=== PATIENT | male | born 1950 | race Two or more races ===

== ENCOUNTER 2019-07-02 06:35 | Day surgery (SDC) | payer MEDICARE ==
[2019-06-28 15:32] LABS: BASOPHILS # (AUTO) 0.1 X10'3 (0-0.2); CHLORIDE 105 MMOL/L (99-107); EOSINOPHILS # (AUTO) 0.1 X10'3 (0-0.9); EOSINOPHILS % (AUTO) 1.8 % (0-6); LYMPHOCYTES % (AUTO) 44.3 % (21-51); MEAN CORPUSCULAR VOLUME 90.8 FL (78-98); MEAN PLATELET VOLUME 9.1 FL (7.4-10.4); MONOCYTES # (AUTO) 0.4 X10'3 (0-0.9); MONOCYTES % (AUTO) 5.4 % (2-12); NEUTROPHILS # (AUTO) 3.2 X10'3 (1.8-7.7); NEUTROPHILS % (AUTO) 47.5 % (42-75); PRE OP PLATELET COUNT 186 X10'3 (140-440); TOTAL CARBON DIOXIDE 25.8 MMOL/L (24-32)
[2019-06-28 16:12] LABS: ALBUMIN 3.9 G/DL (3.4-5.0); ALBUMIN/GLOBULIN RATIO 1.1 (1.1-1.5); ALKALINE PHOSPHATASE 104 IU/L (46-116); BLOOD UREA NITROGEN 20 MG/DL (7-18); BUN/CREATININE RATIO 18.7 (5.4-32.0); CALCIUM 9.4 MG/DL (8.5-10.1); CREATININE 1.07 MG/DL (0.60-1.10); PRE OP ALT 77 U/L (30-65); PRE OP ANION GAP 10 (8-16); PRE OP AST 41 U/L (10-37); PRE OP BILIRUB, TOTAL 0.4 MG/DL (0.0-1.0); PRE OP SODIUM 141 MMOL/L (135-145); TOTAL PROTEIN 7.3 G/DL (6.4-8.2); eGFR 69 ML/MIN
[2019-06-28 16:14] LABS: PRE OP GLUCOSE 206 MG/DL (70-104)
[2019-06-28 16:50] LABS: PRE OP HEMOGLOBIN 15.5 g/dL (14.0-17.9)
[2019-06-28 16:53] LABS: MEAN CORPUSCULAR HEMOGLOBIN 34.1 PG (27.0-31.0); PRE OP HEMATOCRIT 42.7 % (42.0-52.0)
[2019-06-28 18:34] LABS: PLATELET ESTIMATE NORMAL; SPHEROCYTES 2+
[2019-06-28 18:35] LABS: ANISOCYTOSIS FEW
[2019-07-02] VITALS (10 sets, daily range): BP systolic 114–131; BP diastolic 73–83
[~2019-07-02] VITALS: Ht 175.3 cm; Wt 102.1 kg
[~2019-07-02 06:35] MED LIST: AMLO10TA13 PO; BENA40TA72 PO; DICL-182 PO; HYDR25TA4 PO; METF-950 PO; cefazolin/dext.iso 2gm/100 ML IV ONE; famotidine 20mg tablet PO ONE; ringers solution, lacted 1,000 ML IV SCH
[2019-07-02] MEDS ORDERED: BUPIVAcaine/PF 2.5mg/ml (0.25%) 10ml vial ONE (06:39)
[2019-07-02] MEDS ORDERED: LIDOcaine 1% 30ml preserv. free vial ONE (07:46)
[2019-07-02] MEDS ORDERED: ringers solution, lacted 1,000 ML IV SCH (08:24)
[2019-07-02] MEDS ORDERED: ondansetron/PF 4mg/2ml inj IV PRN (08:25)
[2019-07-02] MEDS ORDERED: proCHLORperazine 10 MG/2 ml inj IV PRN (08:25)
[2019-07-02] MEDS ORDERED: morphine 4 MG/ML inj SYRINge IV PRN ×2 (08:25)
[2019-07-02] MEDS ORDERED: meperidine/PF 25mg/ml syringe IV PRN ×3 (08:25)
[2019-07-02] MEDS ORDERED: cloNIDine hcl/PF 100mcg/ml inj ONE (08:44)
[2019-07-02] MEDS ORDERED: fentaNYL/PF 50MCG/1 ML 2ML syringe ONE (09:27)
[2019-07-02] MEDS ORDERED: MIDAZolam 5mg/5ml vial ONE (09:28)
[2019-07-02] MEDS ORDERED: ROPIVAcaine 0.5% (5mg/ml) 30ml vial ONE (11:02)
[2019-07-02] MEDS ORDERED: dexamethasone sod phosphate 4mg/ml inj. ONE (11:03)
[2019-07-02] MEDS ORDERED: ketorolac trometh. 30mg/ml inj. ONE (11:20)
--- NOTE | 2019-07-02 11:30 | NUR ---
Received from OR via BED, accompanied by Anesthesiologist DR CARCAMO and report given by Anesthesiolgist. PATIENT A&OX4, DENIES PAIN, V/S WNL, NEUROVASCULAR CHECKS INTACT, 20G PIV LUE, SCD ON, DRESSING SPLINT IN SLING TO RIGHT WRIST CDI ELEVATED WITH ICEBAG APPLIED.
--- NOTE | 2019-07-02 12:40 | NUR ---
PATIENT A&OX4, DENIES PAIN, V/S WNL, NEUROVASCULAR CHECKS INTACT, 20G PIV LUE D/C, SCD OFF, DRESSING SPLINT IN SLING TO RIGHT WRIST CDI ELEVATED WITH ICEBAG APPLIED.D/C FROM PACU I HAVE REVIEWED D/C INSTRUCTIONS WITH PATIENT AND FAMILY AND THEY HAVE VERBALIZED UNDERSTANDING. PATIENT D/C HOME WITH ALL BELONGINGS AND FAMILY GAVE TRANSPORT HOME.
== END 2019-07-02 12:40 | disposition home or self-care (01) ==
LOC: PAS 06:35
PROVIDERS: ATTEND Orthopaedic Surgery Hand Surgery
DX: T84.290A Other mechanical complication of internal fixation device of bones of hand and fingers, initial encounter (principal); M96.0 Pseudarthrosis after fusion or arthrodesis; G89.18 Other acute postprocedural pain; M16.0 Bilateral primary osteoarthritis of hip; Z79.899 Other long term (current) drug therapy; Z98.890 Other specified postprocedural states; Z72.89 Other problems related to lifestyle; Y83.8 Other surgical procedures as the cause of abnormal reaction of the patient, or of later complication, without mention of misadventure at the time of the procedure; Y82.8 Other medical devices associated with adverse incidents
CPT/HCPCS: 20680; 26850; 36415; 64413; 80053; 82948; 85025; 93005; C1713; J0735; J1100; J1885; J2001; J2250; J3010; J3490; A4215; A4618; A6446; A7000; J2795; J7120

== ENCOUNTER 2019-07-20 08:28 | Emergency (ER) | payer MEDICARE ==
[~2019-07-20] VITALS: Ht 175.3 cm; Wt 100.0 kg
[~2019-07-20 08:28] MED LIST changes: -cefazolin/dext.iso 2gm/100 ML IV ONE; -famotidine 20mg tablet PO ONE; -ringers solution, lacted 1,000 ML IV SCH
[2019-07-20] MEDS ORDERED: LIDOcaine 1% w/epiNEPHrine 1:200,000 30ml vial IM ONE (09:15)
[2019-07-20] MEDS ORDERED: CEPH500C5 PO (09:36)
[2019-07-20 09:52] VITALS: BP 117/73
--- NOTE | 2019-07-20 09:53 | NUR ---
dressed with triple antibiotic ointment, 2x2 guaze and guaze wrap
== END 2019-07-20 10:01 | disposition home or self-care (01) ==
LOC: ER 08:29
DX: S90.852A Superficial foreign body, left foot, initial encounter (principal); I10 Essential (primary) hypertension; E11.9 Type 2 diabetes mellitus without complications; Z79.899 Other long term (current) drug therapy; W22.8XXA Striking against or struck by other objects, initial encounter; Y93.89 Activity, other specified; Y92.89 Other specified places as the place of occurrence of the external cause; Y99.8 Other external cause status
CPT/HCPCS: 10120; 73630; 99284

== ENCOUNTER 2019-09-03 19:02 | Emergency (ER) | payer MEDICARE ==
[~2019-09-03] VITALS: Ht 175.3 cm; Wt 100.0 kg
[2019-09-03] MEDS ORDERED: oxymetazoline 15 ML nasal spray NS ONE ×2 (19:15→19:20)
[2019-09-03] MEDS ORDERED: tranexamic acid 100mg/ml inj. TP ONE (19:20)
[2019-09-03] MEDS ORDERED: LIDOcaine/epinephrine TOPICAL 5 ML BTL TOP ONE (19:20)
[2019-09-03] MEDS ORDERED: LIDOcaine Viscous 15ml cup MM PRN (19:35)
[2019-09-03] MEDS ORDERED: ondansetron 4mg rapidly disintigrating tab PO ONE (19:35)
[2019-09-03] MEDS ORDERED: normal saline 1000ml 1,000 ML IV ONE (20:20)
[2019-09-03] MEDS ORDERED: BACDS PO (20:57)
[2019-09-03 21:46] VITALS: BP 146/96
== END 2019-09-03 21:47 | disposition home or self-care (01) ==
LOC: ER 19:03
DX: R04.0 Epistaxis (principal); R42 Dizziness and giddiness; I10 Essential (primary) hypertension; E11.9 Type 2 diabetes mellitus without complications; Z79.84 Long term (current) use of oral hypoglycemic drugs; Z79.899 Other long term (current) drug therapy
CPT/HCPCS: 30901; 96360; 99284

== ENCOUNTER 2019-09-04 16:32 | Emergency (ER) | payer MEDICARE ==
[~2019-09-04] VITALS: Ht 175.3 cm; Wt 100.0 kg
[~2019-09-04 16:32] MED LIST changes: +BACDS PO
[2019-09-04 17:58] VITALS: BP 123/61
[2019-09-04] MEDS ORDERED: LORazepam 1 MG tablet PO ONE (18:05)
--- NOTE | 2019-09-04 18:13 | NUR ---
relieving RN for lunch, pt is resting quietly on gurney, rhino rocket in place to left nare, no bleeding at this time
[2019-09-04 18:14] LABS: BASOPHILS # (AUTO) 0.1 X10'3 (0-0.2); BASOPHILS % (AUTO) 0.8 % (0-1); EOSINOPHILS # (AUTO) 0.2 X10'3 (0-0.9); EOSINOPHILS % (AUTO) 2.4 % (0-6); HEMATOCRIT 41.3 % (42.0-52.0); HEMOGLOBIN 14.2 g/dl (14.0-17.9); LYMPHOCYTES # (AUTO) 3.2 X10'3 (1.1-4.8); LYMPHOCYTES % (AUTO) 44.7 % (21-51); MEAN CORPUSCULAR HEMOGLOBIN 32.1 PG (27.0-31.0); MEAN CORPUSCULAR HGB CONC 34.3 g/dL (33.0-36.5); MEAN CORPUSCULAR VOLUME 93.5 FL (78-98); MEAN PLATELET VOLUME 8.7 FL (7.4-10.4); MONOCYTES # (AUTO) 0.5 X10'3 (0-0.9); MONOCYTES % (AUTO) 6.7 % (2-12); NEUTROPHILS # (AUTO) 3.2 X10'3 (1.8-7.7); NEUTROPHILS % (AUTO) 45.4 % (42-75); PLATELET COUNT 175 X10'3 (140-440); RED BLOOD COUNT 4.42 X10'6 (4.70-6.10); RED CELL DISTRIBUTION WIDTH 13.2 % (11.5-14.5); WHITE BLOOD COUNT 7.1 X10'3 (4.5-11.0)
[2019-09-04 18:15] LABS: ANION GAP 12 (8-16); BLOOD UREA NITROGEN 17 MG/DL (7-18); BUN/CREATININE RATIO 18.1 (5.4-32.0); CALCIUM 9.4 MG/DL (8.5-10.1); CHLORIDE 105 MMOL/L (99-107); CREATININE 0.94 MG/DL (0.60-1.10); GLUCOSE 174 MG/DL (70-104); POTASSIUM 3.9 MMOL/L (3.5-5.1); SODIUM 141 MMOL/L (135-145); TOTAL CARBON DIOXIDE 24.4 MMOL/L (24-32); eGFR 80 ML/MIN
== END 2019-09-04 18:44 | disposition home or self-care (01) ==
LOC: ER 16:33
DX: R04.0 Epistaxis (principal); I10 Essential (primary) hypertension; E11.9 Type 2 diabetes mellitus without complications; Z79.84 Long term (current) use of oral hypoglycemic drugs; Z79.899 Other long term (current) drug therapy
CPT/HCPCS: 30901; 36415; 80048; 85025; 93005; 99284

== ENCOUNTER 2019-09-07 14:32 | Emergency (ER) | payer MEDICARE ==
[~2019-09-07] VITALS: Ht 175.3 cm; Wt 104.8 kg
[2019-09-07 15:31] VITALS: BP 110/75
== END 2019-09-07 15:30 | disposition home or self-care (01) ==
LOC: ER 14:32
DX: R04.0 Epistaxis (principal); I10 Essential (primary) hypertension; E11.9 Type 2 diabetes mellitus without complications; Z79.84 Long term (current) use of oral hypoglycemic drugs; Z79.899 Other long term (current) drug therapy
CPT/HCPCS: 99283

== ENCOUNTER 2020-01-31 07:47 | Day surgery (SDC) | payer MEDICARE ==
[2020-01-28 15:53] LABS: BASOPHILS # (AUTO) 0.1 X10'3 (0-0.2); BASOPHILS % (AUTO) 0.8 % (0-1); EOSINOPHILS # (AUTO) 0.1 X10'3 (0-0.9); EOSINOPHILS % (AUTO) 1.9 % (0-6); LYMPHOCYTES # (AUTO) 3.3 X10'3 (1.1-4.8); LYMPHOCYTES % (AUTO) 48.4 % (21-51); MEAN CORPUSCULAR HEMOGLOBIN 30.6 PG (27.0-31.0); MEAN CORPUSCULAR VOLUME 90.1 FL (78-98); MEAN PLATELET VOLUME 8.7 FL (7.4-10.4); MONOCYTES # (AUTO) 0.4 X10'3 (0-0.9); MONOCYTES % (AUTO) 6.6 % (2-12); NEUTROPHILS # (AUTO) 2.9 X10'3 (1.8-7.7); NEUTROPHILS % (AUTO) 42.3 % (42-75); PRE OP HEMATOCRIT 44.4 % (42.0-52.0); PRE OP HEMOGLOBIN 15.1 g/dL (14.0-17.9); PRE OP PLATELET COUNT 184 X10'3 (140-440); RED BLOOD COUNT 4.93 X10'6 (4.70-6.10); RED CELL DISTRIBUTION WIDTH 13.8 % (11.5-14.5)
[2020-01-28 16:07] LABS: ALBUMIN 4.1 G/DL (3.4-5.0); ALBUMIN/GLOBULIN RATIO 1.2 (1.1-1.5); ALKALINE PHOSPHATASE 78 IU/L (46-116); BLOOD UREA NITROGEN 20 MG/DL (7-18); BUN/CREATININE RATIO 18.3 (5.4-32.0); CALCIUM 9.5 MG/DL (8.5-10.1); CHLORIDE 103 MMOL/L (99-107); CREATININE 1.09 MG/DL (0.60-1.10); PRE OP ALT 79 U/L (30-65); PRE OP ANION GAP 11 (8-16); PRE OP AST 41 U/L (10-37); PRE OP BILIRUB, TOTAL 0.7 MG/DL (0.0-1.0); PRE OP GLUCOSE 125 MG/DL (70-104); PRE OP POTASSIUM 3.8 MMOL/L (3.4-5.1); PRE OP SODIUM 137 MMOL/L (135-145); TOTAL CARBON DIOXIDE 23.1 MMOL/L (24-32); TOTAL PROTEIN 7.5 G/DL (6.4-8.2); eGFR 67 ML/MIN
[~2020-01-31] VITALS: Ht 175.3 cm; Wt 104.0 kg
[2020-01-31] VITALS (7 sets, daily range): BP systolic 130–147; BP diastolic 66–86
[~2020-01-31 07:47] MED LIST changes: -BACDS PO; +BUPIVAcaine/PF 2.5mg/ml (0.25%) 10ml vial ONE; +cefazolin/dext.iso 2gm/100ml 100 ML IV ONE; +famotidine 20mg tablet PO ONE; +ringers solution, lacted 1,000 ML IV SCH
[2020-01-31] MEDS ORDERED: LIDOcaine 0.5% (5mg/ml) 50ml vial ONE (11:12)
[2020-01-31] MEDS ORDERED: fentaNYL/PF 50MCG/1 ML 2ML syringe ONE ×2 (11:32→11:39)
[2020-01-31] MEDS ORDERED: midazolam 2 mg/2 ml injection ONE ×2 (11:38→11:39)
[2020-01-31] MEDS ORDERED: LIDOcaine 1%/PF 5ML 10 MG/ML VIAL ONE (12:24)
[2020-01-31] MEDS ORDERED: hydrALAZINE 20mg/ml inj. IV ONE (12:24)
[2020-01-31] MEDS ORDERED: propofol inj 20 ML IV ONE (12:24)
--- NOTE | 2020-01-31 12:35 | NUR ---
Received from OR via BED , accompanied by Anesthesiologist and report given by Anesthesiolgist. PATIENT WAKING UP, DENIES PAIN, V/S WNL, NEUROVASCULAR CHECKLS INTACT, 20G PIV TO LUE, SCD ON, DRESSING SPLINT TO RUE WHICH IS ELEVATED AND ICE APPLIED PER MD. PATIENT INSTRUCTED TO WIGGLE FINGERS OFTEN.
--- NOTE | 2020-01-31 13:25 | NUR ---
PATIENT A&OX4, DENIES PAIN, V/S WNL, NEUROVASCULAR CHECKLS INTACT, 20G PIV TO LUE D/C, SCD OFF, DRESSING /SPLINT TO RUE WHICH IS ELEVATED AND ICE APPLIED PER MD. PATIENT INSTRUCTED TO WIGGLE FINGERS OFTEN. I HAVE REVIEWED D/C INSTRUCTIONS WITH PATIENT AND FAMILY WHO VERBALIZES UNDERSTANDING. PATIENT D/C HOME WITH ALL BELONGINGS, TRANSPORTED TO [facility] VIA WC.
== END 2020-01-31 13:25 | disposition home or self-care (01) ==
LOC: PAS 07:47
PROVIDERS: ATTEND Orthopaedic Surgery Hand Surgery
DX: T84.498A Other mechanical complication of other internal orthopedic devices, implants and grafts, initial encounter (principal); T84.9XXA Unspecified complication of internal orthopedic prosthetic device, implant and graft, initial encounter; M19.041 Primary osteoarthritis, right hand; I10 Essential (primary) hypertension; E11.9 Type 2 diabetes mellitus without complications; M16.0 Bilateral primary osteoarthritis of hip; Z98.890 Other specified postprocedural states; Z72.89 Other problems related to lifestyle; Y83.8 Other surgical procedures as the cause of abnormal reaction of the patient, or of later complication, without mention of misadventure at the time of the procedure; Z79.899 Other long term (current) drug therapy
CPT/HCPCS: 26850; 36415; 80053; 82948; 85025; 93005; C1713; J0360; J2001; J2250; J2704; J3010; J3490; J7120; A4215; A4618; A7000

== ENCOUNTER 2021-12-18 07:38 | Emergency (ER) | payer MEDICARE ==
[~2021-12-18] VITALS: Ht 175.3 cm; Wt 99.8 kg
[~2021-12-18 07:38] MED LIST changes: -BUPIVAcaine/PF 2.5mg/ml (0.25%) 10ml vial ONE; +METF-1203 PO; -METF-950 PO; -cefazolin/dext.iso 2gm/100ml 100 ML IV ONE; -famotidine 20mg tablet PO ONE; -ringers solution, lacted 1,000 ML IV SCH
--- NOTE | 2021-12-18 07:45 | NUR ---
DR BENITEZ AWARE OF PATIENT STATUS.
[2021-12-18] MEDS ORDERED: TETanus/Pertussis (Acell)/Diphther VAC/PF (Tdap-Adult) 0.5ml syringe IMVAC ONE (08:05)
[2021-12-18] MEDS ORDERED: LIDOcaine 1% W/epiNEPHrine 1:200,000 10ml vial IJ ONE (08:05)
[2021-12-18] MEDS ORDERED: LIDOcaine 1% W/epiNEPHrine 1:100,000 20ml vial IJ ONE (08:10)
[2021-12-18 08:21] VITALS: BP 156/107
== END 2021-12-18 10:09 | disposition home or self-care (01) ==
LOC: ER 07:38
DX: S01.01XA Laceration without foreign body of scalp, initial encounter (principal); S09.90XA Unspecified injury of head, initial encounter; I10 Essential (primary) hypertension; E11.9 Type 2 diabetes mellitus without complications; Z72.89 Other problems related to lifestyle; Z86.718 Personal history of other venous thrombosis and embolism; Z79.899 Other long term (current) drug therapy; W01.0XXA Fall on same level from slipping, tripping and stumbling without subsequent striking against object, initial encounter; Y93.89 Activity, other specified; Y92.89 Other specified places as the place of occurrence of the external cause; Y99.8 Other external cause status
CPT/HCPCS: 12001; 90471; 90715; 99284; J3490

== ENCOUNTER 2022-08-22 05:27 | Day surgery (SDC) | payer MEDICARE ==
[2022-08-20 10:39] LABS: BASOPHILS % (AUTO) 0.8 % (0-1); EOSINOPHILS # (AUTO) 0.1 X10'3 (0-0.9); EOSINOPHILS % (AUTO) 1.6 % (0-6); HEMATOCRIT 44.1 % (42.0-52.0); HEMOGLOBIN 14.9 g/dl (14.0-17.9); LYMPHOCYTES # (AUTO) 2.8 X10'3 (1.1-4.8); LYMPHOCYTES % (AUTO) 48.4 % (21-51); MEAN CORPUSCULAR HEMOGLOBIN 30.7 PG (27.0-31.0); MEAN CORPUSCULAR HGB CONC 33.7 g/dL (33.0-36.5); MEAN CORPUSCULAR VOLUME 91.2 FL (78-98); MEAN PLATELET VOLUME 8.5 FL (7.4-10.4); MONOCYTES # (AUTO) 0.5 X10'3 (0-0.9); MONOCYTES % (AUTO) 8.3 % (2-12); NEUTROPHILS # (AUTO) 2.3 X10'3 (1.8-7.7); NEUTROPHILS % (AUTO) 40.9 % (42-75); PLATELET COUNT 188 X10'3 (140-440); RED BLOOD COUNT 4.84 X10'6 (4.70-6.10); RED CELL DISTRIBUTION WIDTH 13.4 % (11.5-14.5); WHITE BLOOD COUNT 5.7 X10'3 (4.5-11.0)
[2022-08-20 11:00] LABS: ALANINE AMINOTRANSFERASE 41 U/L (12-78); ALBUMIN 4.1 G/DL (3.4-5.0); ALBUMIN/GLOBULIN RATIO 1.2 (1.1-1.5); ALKALINE PHOSPHATASE 91 IU/L (46-116); ANION GAP 6 (8-16); ASPARTATE AMINO TRANSFERASE 31 U/L (10-37); BILIRUBIN,TOTAL 0.5 MG/DL (0.1-1.0); BLOOD UREA NITROGEN 16 MG/DL (7-18); BUN/CREATININE RATIO 18.4 (5.4-32.0); CALCIUM 9.6 MG/DL (8.5-10.1); CHLORIDE 102 MMOL/L (99-107); CREATININE 0.87 MG/DL (0.60-1.10); GLUCOSE 123 MG/DL (70-104); SODIUM 136 MMOL/L (135-145); TOTAL CARBON DIOXIDE 27.6 MMOL/L (24-32); TOTAL PROTEIN 7.5 G/DL (6.4-8.2); eGFR 87 ML/MIN
[~2022-08-22] VITALS: Ht 175.3 cm; Wt 97.4 kg
[2022-08-22] VITALS (7 sets, daily range): BP systolic 118–135; BP diastolic 75–89
[~2022-08-22 05:27] MED LIST changes: +ringers solution, lacted 1,000 ML IV SCH
[2022-08-22] MEDS ORDERED: ceFAZolin inj. 2,000 MG in dextrose 5%-water 100 ML IV ONE (05:30)
[2022-08-22] MEDS ORDERED: famotidine 20mg tablet PO ONE (05:30)
[2022-08-22] MEDS ORDERED: BUPIVAcaine/PF 2.5mg/ml (0.25%) 10ml vial ONE (06:52)
[2022-08-22] MEDS ORDERED: LIDOcaine 0.5% (5mg/ml) 50ml vial ONE (07:09)
[2022-08-22] MEDS ORDERED: labetalol 20mg/4ml (5mg/ml) syringe IV PRN (07:10)
[2022-08-22] MEDS ORDERED: ringers solution, lacted 1,000 ML IV SCH (07:10)
[2022-08-22] MEDS ORDERED: ondansetron/PF 4mg/2ml inj IV PRN (07:10)
[2022-08-22] MEDS ORDERED: fentaNYL/PF 50MCG/1 ML 2ML syringe IV PRN ×2 (07:10)
[2022-08-22] MEDS ORDERED: morphine 2 MG/ML inj. syringe IV PRN (07:10)
[2022-08-22] MEDS ORDERED: morphine 4 MG/ML inj SYRINge IV PRN (07:10)
[2022-08-22] MEDS ORDERED: hydrALAZINE 20mg/ml inj. IV PRN (07:10)
[2022-08-22] MEDS ORDERED: fentaNYL/PF 50MCG/1 ML 2ML syringe ONE (07:14)
[2022-08-22] MEDS ORDERED: MIDAZolam 1mg/ml 10ml vial ONE (07:14)
--- NOTE | 2022-08-22 07:59 | NUR ---
Received from OR via [facility], accompanied by Anesthesiologist RALF and report given by Anesthesiolgist. NO RESP DISTRESS, DSG CDI. MOVES FINGERS, HAND WARM.
[2022-08-22] MEDS ORDERED: HYDROcodone/acetaminophen 10/325mg tab PO PRN (08:05)
--- NOTE | 2022-08-22 09:00 | NUR ---
PT STABLE FOR DISCHARGE, IN WHEELCHAIR, DC PAPERWORK PROVIDED. UNABLE TO CONTACT VIA PHONE AND IS NOT IN WAITING ROOM SO UNABLE TO CHANGE PT INTO CLOTHING SINCE HAS HIS BELONGINGS. AWAITING TO RETURN AND THEN DC INTO 'S CARE. Addendum: 08/22/22 at 0909 by Rojas Harry RN Amended: Links added.
--- NOTE | 2022-08-22 09:15 | NUR ---
SMALL AMOUNT OF BLOOD AT RIGHT WRIST DRESSING. NOTIFIED, REINFORCE DRESSING. PT INSTRUCTED ON DC FOLLOW UP PLAN OF CARE AND DRESSING CARE, PT VERBALIZED UNDERSTANDING. POSITIVE CMS, EXCEPT SLIGHT NUMBNESS TO RIGHT FINGERS, AWARE. @09: PT DC INTO CARE OF SIGNIFICANT OTHER VIA WHEELCHAIR IN POV WITHOUT INCIDENT. PT VSS. Addendum: 08/22/22 at 0931 by Rojas Harry RN Amended: Links added.
== END 2022-08-22 09:19 | disposition home or self-care (01) ==
LOC: PAS 05:27
PROVIDERS: ATTEND Orthopaedic Surgery
DX: G56.01 Carpal tunnel syndrome, right upper limb (principal); I10 Essential (primary) hypertension; E11.9 Type 2 diabetes mellitus without complications; Z79.84 Long term (current) use of oral hypoglycemic drugs; Z79.899 Other long term (current) drug therapy; Z98.890 Other specified postprocedural states; Z72.89 Other problems related to lifestyle
CPT/HCPCS: 36415; 64721; 80053; 82948; 85025; 93005; A6222; J0690; J2250; J3010; J3490; J7030; J7060; J7120; Z7506; Z7512; A4215; A4565; A6449; A7000

== ENCOUNTER 2023-07-15 10:42 | Emergency (ER) | payer MEDICARE ==
[~2023-07-15] VITALS: Ht 175.3 cm; Wt 110.0 kg
[~2023-07-15 10:42] MED LIST changes: +AMLO10TA PO; -AMLO10TA13 PO; +BENA40TA45 PO; -BENA40TA72 PO; -DICL-182 PO; -METF-1203 PO; +METF-436 PO; -ringers solution, lacted 1,000 ML IV SCH
[2023-07-15 10:48] VITALS: TEMP 98.8
[2023-07-15 11:11] LABS: BASOPHILS # (AUTO) 0.1 X10'3 (0-0.2); BASOPHILS % (AUTO) 0.8 % (0-1); EOSINOPHILS # (AUTO) 0.1 X10'3 (0-0.9); EOSINOPHILS % (AUTO) 1.7 % (0-6); HEMATOCRIT 36.9 % (42.0-52.0); HEMOGLOBIN 12.5 g/dl (14.0-17.9); LYMPHOCYTES # (AUTO) 2.6 X10'3 (1.1-4.8); LYMPHOCYTES % (AUTO) 34.9 % (21-51); MEAN CORPUSCULAR HEMOGLOBIN 31.3 PG (27.0-31.0); MEAN CORPUSCULAR VOLUME 92.2 FL (78-98); MEAN PLATELET VOLUME 7.3 FL (7.4-10.4); MONOCYTES # (AUTO) 0.5 X10'3 (0-0.9); MONOCYTES % (AUTO) 7.2 % (2-12); NEUTROPHILS # (AUTO) 4.1 X10'3 (1.8-7.7); NEUTROPHILS % (AUTO) 55.4 % (42-75); PLATELET COUNT 276 X10'3 (140-440); RED BLOOD COUNT 4.01 X10'6 (4.70-6.10); RED CELL DISTRIBUTION WIDTH 13.4 % (11.5-14.5); WHITE BLOOD COUNT 7.5 X10'3 (4.5-11.0)
[2023-07-15 11:23] LABS: ALANINE AMINOTRANSFERASE 35 U/L (12-78); ALBUMIN 3.4 G/DL (3.4-5.0); ALBUMIN/GLOBULIN RATIO 0.8 (1.1-1.5); ALKALINE PHOSPHATASE 86 IU/L (46-116); ANION GAP 8 (8-16); ASPARTATE AMINO TRANSFERASE 21 U/L (10-37); BILIRUBIN,TOTAL 0.8 MG/DL (0.1-1.0); BLOOD UREA NITROGEN 20 MG/DL (7-18); BUN/CREATININE RATIO 19.8 (10.0-20.0); CALCIUM 9.8 MG/DL (8.5-10.1); CHLORIDE 100 MMOL/L (99-107); CREATININE 1.01 MG/DL (0.60-1.10); GLUCOSE 291 MG/DL (70-104); POTASSIUM 4.5 MMOL/L (3.5-5.1); SODIUM 136 MMOL/L (135-145); TOTAL CARBON DIOXIDE 28.5 MMOL/L (24-32); TOTAL PROTEIN 7.5 G/DL (6.4-8.2); eCRCL 67 ML/MIN; eGFR 73 ML/MIN
[2023-07-15 11:30] LABS: PRO BRAIN NATRIURETIC PEPTIDE < 30 PG/ML (0-125)
[2023-07-15 12:01] VITALS: BP 112/75; PULSE 100; RESP 16; O2SAT 98
== END 2023-07-15 13:51 | disposition left against medical advice (07) ==
LOC: ER 10:43
DX: R07.9 Chest pain, unspecified (principal); Z53.21 Procedure and treatment not carried out due to patient leaving prior to being seen by health care provider
CPT/HCPCS: 36415; 71045; 80053; 83880; 84484; 85025; 93005; 99281